=== PATIENT | female | born 1950 | race Caucasian/White ===

== ENCOUNTER → 2017-02-14 | Outpatient (CLI) | payer BC, MEDICARE ==
[~2017-02-14] MED LIST: ADVAIR 100-501 EAC1; COMBIVENT MININEB INH; DYAZIDE 37.5-21 EACH; LIPITOR PO; LIPITOR40 MG PO; PROAIR HFA8.5 GM; VITAMIN D32000 UNI1 PO; [UNRECOGNIZED DRUG - OTHER] PO
== END | disposition home or self-care (01) ==
LOC: CSSDAY 08:19
DX: M81.0 Age-related osteoporosis without current pathological fracture (principal)
CPT/HCPCS: 96365; J3489